=== PATIENT | female | born 1965 | race Caucasian/White ===

== ENCOUNTER 2022-05-05 07:35 | Outpatient (CLI) | payer OTHER, SELFPAY ==
--- NOTE | ~2022-05-05 | MM_ITS ---
EXAMINATION: MM screening corin BI w noris HISTORY: Screening TECHNIQUE: Craniocaudal and mediolateral oblique 3-D tomosynthesis images were obtained and synthetic 2-D images were generated. CAD analysis was submitted and interpreted. COMPARISON: No prior mammogram is available for comparison at this institution. BREAST PARENCHYMAL COMPOSITION: There are scattered areas of fibroglandular density. FINDINGS: There is no evidence of suspicious mass, calcification, or architectural distortion to sugg est malignancy in either breast. There has been no suspicious interval change. IMPRESSION: 1. No mammographic evidence of malignancy. 2. Recommend routine screening mammography in one year. BI-RADS Category 1: Negative Reviewed, dictated and finalized at location A.
== END 2022-05-05 07:36 | disposition home or self-care (01) ==
PROVIDERS: PCP Nurse Practitioner Family; Visit Provider Nurse Practitioner Family
DX: Z12.31 Encounter for screening mammogram for malignant neoplasm of breast (principal)
CPT/HCPCS: 77063; 77067

== ENCOUNTER 2023-01-30 09:48 | Outpatient (CLI) | payer OTHER, SELFPAY ==
[2023-01-30 15:03] LABS: Basophils Percent Auto 0.5 % (0.2-1.2); Eosinophils Absolute Auto 0.1 K/mm3 (0-0.3); Eosinophils Percent Auto 1.7 % (0-4.4); Hematocrit 42.1 % (37.0-47.0); Hemoglobin 13.8 g/dL (12.0-15.0); Immature Granulocyte Absolute 0.02 K/mm3 (0.00-0.031); Immature Granulocyte Percent A 0.3 % (0-0.5); Lymphocytes Absolute Auto 2.29 K/mm3 (0.9-3.2); Lymphocytes Percent Auto 35.6 % (18.3-44.2); Mean Corpuscular HGB Conc 32.8 g/dl (32-36); Mean Corpuscular Hemoglobin 31.7 pg (26-34); Mean Corpuscular Volume 96.8 fl (80-100); Monocytes Absolute Auto 0.3 K/mm3 (0.1-0.6); Monocytes Percent Auto 4.7 % (2.6-8.5); Neutrophils Absolute Auto 3.7 K/mm3 (1.3-6.7); Neutrophils Percent Auto 57.2 % (45.5-73.1); Platelet Count Result 296 k/mm3 (150-375); Red Blood Count 4.35 M/mm3 (4.2-5.4); Red Cell Distribution Width 12.3 % (11.5-14.5); White Blood Count 6.4 K/mm3 (4.5-10.0)
[2023-01-30 18:04] LABS: Alanine Aminotransferase 34 U/L (6-35); Albumin Level 4.1 g/dL (3.5-5.1); Alkaline Phosphatase 91 U/L (38-126); Anion Gap 9 mmol/L (8-16); Aspartate Amino Transferase 46 U/L (14-36); Bilirubin,Total 0.5 mg/dL (0.2-1.3); Blood Urea Nitrogen 20 mg/dL (7-17); Calcium 9.3 mg/dL (8.4-10.2); Carbon Dioxide 27 mmol/L (22-30); Chloride 104 mmol/L (98-107); Cholesterol 194 mg/dL (0-200); Estimated Glomerular Filt Rate > 60; Glucose 69 mg/dL (65-110); HDL Direct 38 mg/dL; Potassium 3.7 mmol/L (3.4-5.0); Sodium 140 mmol/L (137-145); Triglycerides 166 mg/dL (<150)
[2023-01-30 18:17] LABS: LDL Cholesterol Direct 110 mg/dL
[2023-01-30 19:22] LABS: Hemoglobin A1C 5.7 % (<5.7)
[2023-01-30 20:19] LABS: Hepatitis C Virus Antibody Negative (Negative)
== END 2023-01-30 09:49 | disposition home or self-care (01) ==
LOC: ANHGOSHLAB 09:49
PROVIDERS: Visit Provider Family Medicine
DX: E78.2 Mixed hyperlipidemia (principal); E66.9 Obesity, unspecified; F17.200 Nicotine dependence, unspecified, uncomplicated; Z11.59 Encounter for screening for other viral diseases
CPT/HCPCS: 36415; 80053; 80061; 83036; 84443; 85025; 86803

== ENCOUNTER → 2023-02-03 10:22 | Outpatient (CLI) | payer OTHER, SELFPAY ==
--- NOTE | ~2023-02-03 | CT_ITS ---
EXAMINATION:CT lung screening DATE: 02/03/2023 10:39 INDICATION: Personal history of nicotine dependence. Current smoker with 21 pack year history. TECHNIQUE: Computed tomography (CT) of the chest was performed without intravenous contrast. Automate d exposure control and iterative reconstruction technique were employed. The dose-length product (DLP ) was 280.21 mGy-cm. COMPARISON: None. FINDINGS: There is mild emphysema. A calcified right lung nodule is consistent with old granulomatous disease. No pleural effusion. The heart size is normal. No pericardial effusion. There is diffuse he patic steatosis. There is mild thoracic spondylosis. IMPRESSION: 1. Lung-RADS category 1: Negative. Continue annual screening with noncontrast low-dose chest CT in 12 months. Reviewed, dictated and finalized at location E. C4 PLANNER IMPRESSION: 1. Lung-RADS category 1: Negative. Continue annual screening with noncontrast l ow-dose chest CT in 12 months.
== END ==
PROVIDERS: PCP Family Medicine; Visit Provider Family Medicine
DX: Z12.2 Encounter for screening for malignant neoplasm of respiratory organs (principal); F17.210 Nicotine dependence, cigarettes, uncomplicated
CPT/HCPCS: 71271

== ENCOUNTER 2023-04-17 15:32 | Outpatient (CLI) | payer OTHER, SELFPAY ==
--- NOTE | ~2023-04-17 | MM_ITS ---
EXAMINATION: MM screening corin BI w noris HISTORY: Screening mammogram TECHNIQUE: Craniocaudal and mediolateral oblique 3-D tomosynthesis images were obtained and synthetic 2-D images were generated. CAD analysis was submitted and interpreted. COMPARISON: 05/05/2022 bilateral screening mammogram BREAST PARENCHYMAL COMPOSITION: There are scattered areas of fibroglandular density. FINDINGS: There is no evidence of suspicious mass, calcification, or architectural distortion to sugg est malignancy in either breast. There has been no suspicious interval change. IMPRESSION: 1. No mammographic evidence of malignancy. 2. Recommend routine screening mammography in one year. BI-RADS Category 1: Negative Reviewed, dictated and finalized at location A. ANTING MACHINE CREW
== END 2023-04-17 15:33 | disposition home or self-care (01) ==
LOC: ANHIMG 15:46
PROVIDERS: PCP Family Medicine; Visit Provider Family Medicine
DX: Z12.31 Encounter for screening mammogram for malignant neoplasm of breast (principal)
CPT/HCPCS: 77063; 77067

== ENCOUNTER 2024-08-11 14:50 | Outpatient (CLI) | payer OTHER, SELFPAY ==
--- NOTE | ~2024-08-11 | XR_ITS ---
EXAM: XR elbow LT min 3V, XR forearm LT 2V, XR wrist LT min 3V DATE: 08/11/2024 15:37 HISTORY: S59.912A - Unspecified injury of left forearm, initial en... . COMPARISON: None available. FINDINGS: Normal mineralization. No fracture or dislocation. No lytic or blastic lesion. Mild degene rative changes in the elbow. Moderate elbow joint effusion. Scattered degenerative changes in the wri st, most notably at the triscaphe joint and first CMC joint No erosion or periosteal change. Soft tis soham swelling over the antecubital fossa. IMPRESSION: Moderate elbow joint effusion which can accompany occult fractures, likely radial head in a patient of this age. Soft tissue swelling over the antecubital fossa, correlate for mass, hematoma , or biceps injury. Reviewed, dictated and finalized at location K. IMPRESSION: Moderate elbow joint effusion which can accompany occult fractures, likely radial head in a patient of this age. Soft tissue swelling over the ant ecubital fossa, correlate for mass, hematoma, or biceps injury. IMPRESSION: Moderate elbow joint effusion which can accompany occult fractures, likely radial head in a patient of this age. Soft tissue swelling over the ant ecubital fossa, correlate for mass, hematoma, or biceps injury.
== END 2024-08-11 14:51 | disposition home or self-care (01) ==
LOC: GOSHIMG 14:51
PROVIDERS: PCP Family Medicine; Visit Provider Family Medicine
DX: S59.912A Unspecified injury of left forearm, initial encounter (principal); M25.422 Effusion, left elbow; X58.XXXA Exposure to other specified factors, initial encounter
CPT/HCPCS: 73080; 73090; 73110

== ENCOUNTER 2024-08-17 08:29 | Outpatient (CLI) | payer OTHER, SELFPAY ==
--- NOTE | ~2024-08-17 | CT_ITS ---
CT Scan of the Chest without Contrast: Clinical Indication: Lung cancer screening, nicotine dependence Technique: Contiguous sections were acquired throughout the chest without intravenous contrast. Dose reduction technique was used on this scan by utilizing automated exposure control and iterative recon struction technique. The dose-length product (DLP) was 195.24 mGy-cm. COMPARISON: 02/03/2023 Findings: There is no evidence of any significant mediastinal, hilar or axillary lymphadenopathy. The mediastin al soft tissues appear normal. There is no evidence of pleural or pericardial effusion. The lungs are clear. No pulmonary nodules or infiltrates are noted. Images through the upper abdomen reveal no abnormalities. Impression: Lung RADS 1: Negative. 12 month follow-up screening CT advised. Reviewed, dictated and finalized at location . Impression: Lung RADS 1: Negative. 12 month follow-up screening CT advised.
== END 2024-08-17 08:30 | disposition home or self-care (01) ==
LOC: MICIMG 08:29
PROVIDERS: PCP Family Medicine; Visit Provider Family Medicine
DX: Z12.2 Encounter for screening for malignant neoplasm of respiratory organs (principal); F17.200 Nicotine dependence, unspecified, uncomplicated
CPT/HCPCS: 71271

== ENCOUNTER 2024-09-06 14:34 | Outpatient (CLI) | payer OTHER, SELFPAY ==
--- NOTE | ~2024-09-06 | MR_ITS ---
MRI of left elbow CLINICAL HISTORY: Pain TECHNIQUE: Proton-density and proton-density fat-sat images were performed in the axial, coronal, and sagittal planes. FINDINGS: Ulnar collateral ligament is intact. Radial collateral ligament and the lateral ulnar colla teral ligament are intact. Common flexor and common extensor tendon origins are intact with minimal t endinosis. There is oblique, intra-articular, nearly nondisplaced fracture of the radial head, best seen on seri es 8 images 11-15. There is extensive surrounding marrow edema throughout the radial head and radial tuberosity region. There is moderate to large associated elbow joint effusion. Remaining osseous stru ctures and bone marrow signals are otherwise unremarkable. No osteoarthritic change evident. Biceps, brachialis, and triceps tendons are intact. No soft tissue mass or fluid collection seen othe rwise. IMPRESSION: Acute, oblique, intra-articular fracture the radial head with minimal displacement and extensive surr ounding marrow edema. Associated moderate to large elbow joint effusion. Reviewed, dictated and finalized at location . IMPRESSION: Acute, oblique, intra-articular fracture the radial head with minimal displacem ent and extensive surrounding marrow edema. Associated moderate to large elbow joint effusion.
== END 2024-09-06 14:35 | disposition home or self-care (01) ==
LOC: MICIMG 14:35
PROVIDERS: PCP Family Medicine; Visit Provider Family Medicine
DX: S52.122A Displaced fracture of head of left radius, initial encounter for closed fracture (principal); M25.422 Effusion, left elbow; X58.XXXA Exposure to other specified factors, initial encounter
CPT/HCPCS: 73221

== ENCOUNTER 2024-10-28 14:40 | Outpatient (CLI) | payer OTHER, SELFPAY ==
--- OUTSIDE RECORDS SUMMARY | 2023-12-05 04:00 | XMS_ITS ---
Author Organization [facility] Address [address] [address] Care Team Providers Care Belt Maker Name Role Phone Renee Freedmanorah Primary Care Provider Migration, Provider Unavailable Unavailable REASON FOR VISIT EMR-Armen Encounters Encounter Location Date Provider Diagnosis [facility] [address] [address] 12/05/2023 Provider Migration Plan Of Treatment No Information Progress Notes * Rahel KENNEDY WDOB:[birth year] (59 yo F)Acc No.[id number]:12/05/2023 Patient: Rahel HENNING :1965 A ge:58 Y S ex:Female Address:[address] [place] [id number] Subjective: * Chief Complaints: * E MR-Armen * * Date:
--- OUTSIDE RECORDS SUMMARY | 2023-12-06 04:00 | XMS_ITS ---
Author Organization [facility] Address [address] [address] Care Team Providers Care Welding Specialist Name Role Phone Tano Violetta Primary Care Provider Migration, Provider Unavailable Unavailable REASON FOR VISIT EMR-Armen Encounters Encounter Location Date Provider Diagnosis [facility] [address] [address] 12/06/2023 Provider Migration Plan Of Treatment No Information Progress Notes * Rahel KENNEDY WDOB:[birth year] (59 yo F)Acc No.[id number]:12/06/2023 Patient: [facility] Rahel DAMON :1965 A ge:58 Y S ex:Female Address:[address] [place] [address] Subjective: * Chief Complaints: * E MR-Armen * Medical History: UNREMARKABLE * Surgical History: NONE * * Date:
--- NOTE | ~2024-10-28 | MM_ITS ---
EXAMINATION: MM screening corin BI w noris HISTORY: Screening TECHNIQUE: Craniocaudal and mediolateral oblique 3-D tomosynthesis images were obtained and synthetic 2-D images were generated. CAD analysis was submitted and interpreted. COMPARISON: Comparison to multiple prior studies sequentially, with oldest reviewed study dated , 05/05/2022 BREAST PARENCHYMAL COMPOSITION: There are scattered areas of fibroglandular density. FINDINGS: There is no evidence of suspicious mass, calcification, or architectural distortion to suggest malignancy in either breast. IMPRESSION: 1. No mammographic evidence of malignancy. 2. Recommend routine screening mammography in one year. BI-RADS Category 1: Negative Reviewed, dictated and finalized at location B.
--- OUTSIDE RECORDS SUMMARY | 2024-10-28 14:44 | XMS_ITS | Patient Health Record ---
Author Organization [facility] Address [address] [address] Care Team Providers Care Cad Detailer Name Role Phone Violetta Freedman Primary Care Provider Migration, Provider Unavailable Unavailable Reason For Referral No Information Immunizations Vaccine Route Administration Date Status Comme nts Hep A, Adult IM Intramuscular 05/26/2007 Administered Tdap (Boostrix) Under 18 IM Intramuscular 05/26/2007 Admin istered Problems Problem Type SNOMED Code ICD Code Onset Dates Problem Status W/U Status Risk Notes Problem Malaise and fatigue (243466635) Other malaise and fatigue (780.79) 05/26/19 08 Active confirmed Problem Lipid screening (598285239) Screening for lipoid disorders (V77.91) 05/26/19 08 Active confirmed Problem Vaccination needed (201664657618200) Need for prophylactic vaccination and inoculation, Other viral diseases (V04.89) 05/26/19 08 Problem resolved confirmed Problem Vaccine product containing only acellular Bordetella pertussis and Clostridium tetani and Corynebacterium diphtheriae antigens (medicinal product) (904154924) Diphtheria-teta nus-pertussis, combined [DTP] [DtaP] (V06.1) 05/26/19 08 Problem resolved confirmed Problem General examination of patient (176582541) Routine general medical examination at health care facility (V70.0) 05/28/19 08 Problem resolved confirmed Encounters Encounter Location Date Provider Diagnosis [facility] [address] [address] 12/05/2023 Provider Migration [facility] [address] [address] 12/06/2023 Provider Migration Plan Of Treatment No Information Insurance Providers Payer Name Payer Address Payer Phone Subscriber Number Group Number Insured Name Patient Relationship to Insured Coverage Start Date Coverage End Date [employer] [address] [place], [place] [id number] Rahel Watson Self - patient is the insured 8 Medical (General) History Surgical History Surgery Date(Month/Year) NONE
--- OUTSIDE RECORDS SUMMARY | 2024-10-28 14:44 | XMS_ITS | Clinical Summary ---
Author Organization [facility] Address [address] [place] [address] Care Team Providers Care Import Clerk Name Role Phone Sanjiv Castellano MD Primary Care Provider Unavailabl e Allergies No known active allergies Medications acetaminophen CR 650 MG Tab CR 8 hr tablet Take 650 mg by mouth. Active Active Problems Problem Noted Date Diagnosed Date Degenerative joint disease (DJD) of hip 01/11/20 20 Resolved Problems Problem Noted Date Diagnosed Date Resolved Date FH: CAD (coronary artery disease) 04/30/2015 01/11/2020 Thyromegaly 04/30/2015 01/11/2020 Mixed hyperlipidemia 01/26/2014 020 Immunizations Immunization Administration Dates Next Due Hepatitis A (Generic) 05/26/2007 Tdap (Adacel) 05/26/2007 Family History Medical History Relation Comments Heart Attack Father Hypertension Father Cancer Maternal Grandfather Cancer Maternal Grandmother Breast Cancer Mother Diabetes Mother Hypertension Mother Lipids Mother Relation Status Comments Father Maternal Grandfather Maternal Grandmother Mother Social History Tobacco Use Types Packs/Day Years Used Date Smoking Tobacco: Every Day Cigarettes Smokeless Tobacco: Never Alcohol Use Standard Drinks/Week Comments Yes 0 (1 standard drink = 0.6 oz pur e alcohol) PHQ-2 Answer Date Recorded PHQ-2 Score - If the patient scores above 3, please move on to questions 3-9 0 01/11/2020 Comments Unknown Sex and Gender Information Value Date Recorded Sex Assigned at Not on file Legal Sex Female 9:37 AM SOFTWARE TEST AUTOMATION ENGINEER Gender Identity Not on file Sexual Orientation Not on file Last Filed Vital Signs Vital Sign Reading Time Taken Comments Blood Pressure 122/80 02/07/2020 9:57 AM SOFTWARE TEST AUTOMATION ENGINEER Pulse 87 02/07/2020 9:57 AM SOFTWARE TEST AUTOMATION ENGINEER Temperature 36.2 C (97.2 F) 02/07/2020 9:57 AM SOFTWARE TEST AUTOMATION ENGINEER Respiratory Rate 18 02/07/2020 9:57 AM SOFTWARE TEST AUTOMATION ENGINEER Oxygen Saturation 97% 02/07/2020 9:57 AM SOFTWARE TEST AUTOMATION ENGINEER Inhaled Oxygen Concentration - - Weight 95.3 kg (210 lb) 02/07/2020 9:57 AM SOFTWARE TEST AUTOMATION ENGINEER Height 167.6 cm (5' 6) 02/07/2020 9:57 AM SOFTWARE TEST AUTOMATION ENGINEER Body Mass Index 33.89 02/07/2020 9:57 AM SOFTWARE TEST AUTOMATION ENGINEER Plan of Treatment Health Maintenance Due Date Last Done Comments Cervical Cancer Screening Pa p Smear (Age 30 to 64) Every 3 Years 1966 Colorectal Cancer Screening Colonoscopy (10 Years) 1966 Annual Physical 1969 Hepatitis C 01/22/1984 Hepatitis B Vaccines (1 of 3 - 19+ 3-dose series) 1985 Pneumococcal Vaccine: 50+ Years (1 of 2 - PCV) 1985 Cervical Cancer Screening Pa p with HPV Testing (Age 30 to 64) Every 5 Years 01/22/1996 Cervical Cancer Screening wi th HPV 01/22/1996 Mammogram Screening 2006 Zoster Vaccines (1 of 2) 01/22/2016 DTaP, Tdap and Td Vaccines ( 3 - Td or Tdap) 2024 01/20/2014, 05/26/2007 COVID-19 Vaccine (1 - 2023-2 5 season) 2024 Meningococcal B Vaccine Aged Out No l onger eligible based on patient's age to complete this topic Meningococcal Vaccine Aged Out No chris caitlin eligible based on patient's age to complete this topic RSV Immunizations Under 20 Months Aged Out No longer eligible b ased on patient's age to complete this topic Insurance [employer] Care Teams Import Clerk Relationship Specialty Start Date End Date Sanjiv Castellano MD PCP - General FAMILY MEDICINE SPORTS MEDICINE 01/04/20
== END 2024-10-28 14:41 | disposition home or self-care (01) ==
LOC: ANHFOHIMG 14:42
PROVIDERS: PCP Family Medicine; Visit Provider Family Medicine
DX: Z12.31 Encounter for screening mammogram for malignant neoplasm of breast (principal)
CPT/HCPCS: 77063; 77067